=== PATIENT | male | born 1955 | race Caucasian/White ===

== ENCOUNTER 2019-06-18 11:40 | Emergency (ER) | payer MEDICARE, OTHER ==
--- OUTSIDE RECORDS SUMMARY | 2019-06-18 11:45 | XMS REPORT | Summary of Care ---
:1955 Author Organization The Address [address] [address] Care Team Providers Name Role Phone Bg Crouch Primary Care Provider Reason for Visit Reason Comments Lab Work Only done last OV 11/27/18 Thyroid Problem was confused about directions of levothyroxine, was doing 150mcg qd and then realized it was suppose to be qod (been doing that past 6-8 weeks), however he never took the 175mcg at all Hypertension f/u BP 112/70 Sleep Apnea uses CPAP nightly with no issues Dry Skin c/o dry itchy skin Rash upper arms, back of legs and groin Encounter Details Date Type Department Care Team Description 05/29/2019 Office Visit [facility] Bg Crouch MD Hypothyroidism due to acquired atrophy of thyroid (Primary Dx); Medicine [address] Rash [address] [place] [address] [place] [address] [phone] Allergies No Known Allergiesdocumented as of this encounter (statuses as of 05/30/2019) Medications Medication Sig Dispensed Refills Start Date End Date Status aspirin 81 MG Oral Chew Take 81 mg by 0 Active Tab mouth DAILY. levothyroxine Take 1 Tab by 45 Tab 3 11/28/2018 Active (SYNTHROID) 175 MCG mouth EVERY OTHER Oral Tab DAY. levothyroxine Take 1 Tab by 45 Tab 3 11/28/2018 Active (SYNTHROID) 150 MCG mouth EVERY OTHER Oral Tab DAY. simvastatin (ZOCOR) 40 TAKE 1 TABLET BY 90 Tab 3 02/11/2019 Active MG Oral TabIndications: MOUTH AT BEDTIME ASHD (arteriosclerotic heart disease) losartan (COZAAR) 25 MG TAKE 1 TABLET BY 90 Tab 3 03/20/2019 Active Oral Tab MOUTH EVERY DAY fluticasone (FLONASE) [place] 2 Sprays in 0 Active 50 MCG/ACT Nasal nose DAILY Suspension NEEDED. triamcinolone Apply to affected 80 g 5 05/29/2019 Active (KENALOG,ARISTOCORT) areas daily as 0.1 % Apply externally needed CreamIndications: Rash documented as of this encounter (statuses as of 05/30/2019) Active Problems Problem Noted Date Essential hypertension 11/28/2017 BRENDON on CPAP 05/11/2017 Bilateral carpal tunnel syndrome 05/11/2017 Ankle pain, right 03/19/2015 Sprain of ankle, unspecified site 03/19/2015 documented as of this encounter (statuses as of 05/30/2019) Social History Tobacco Use Types Packs/Day Years Used Date Former Smoker Smokeless Tobacco: Never Used Alcohol Use Drinks/Week oz/Week Comments No Sex Assigned at Date Recorded Not on file Job Start Date Occupation Industry Not on file Not on file Not on file Travel History Travel Start Travel End No recent travel history available. documented as of this encounter Last Filed Vital Signs Vital Sign Reading Time Taken Comments Blood Pressure 112/70 05/29/2019 9:40 AM EDT Pulse 60 05/29/2019 9:40 AM EDT Temperature - - Respiratory Rate - - Oxygen Saturation - - Inhaled Oxygen Concentration - - Weight 132.9 kg (293 lb) 05/29/2019 9:40 AM EDT Height 185.4 cm (6' 1") 05/29/2019 9:40 AM EDT Body Mass Index 38.66 05/29/2019 9:40 AM EDT documented in this encounter Patient Instructions Patient InstructionsBg Crouch MD - 05/29/2019 9:40 AM EDTContinue same medicines, but make sure you are taking levothyroxine 150 mg alternating with 175 mg, on a daily basis Try triamcinolone cream to the rash on the arms, legs, groin, do not use it every day for more than 2 weeks or he can damage the skin. If it is not helping we will refer you to dermatology. Return in July for a thyroid-stimulating hormone test which will tell us if you are back on track with respect to your thyroid replacement therapy. I will send you the results with a letter or email If all okay, return in 6 months for your yearly exam documented in this encounter Progress Notes Bg Crouch MD - 05/29/2019 9:40 AM EDT PATIENT: Lonnie Reynoso : 1955 DATE OF SERVICE: 05/29/2019 CHIEF COMPLAINT: Chief Complaint Patient presents with Lab Work Only done last OV 11/27/18 Thyroid Problem was confused about directions of levothyroxine, was doing 150mcg qd and then realized it was suppose to be qod (been doing that past 6-8 weeks), however he never took the 175mcg at all Hypertension f/u BP 112/70 Sleep Apnea uses CPAP nightly with no issues Dry Skin c/o dry itchy skin Rash upper arms, back of legs and groin Subjective HISTORY OF PRESENT ILLNESS: Lonnie Reynoso is a 64-y.o. male. HPI Was taking thyroid incorrectly, taking nothing every other day. Told him to take 150 mcg on one dayand 175 mcg on the next day, in an alternating manner. Blood pressure under good control Using CPAP nightly Complains of rash on his upper arms back so his legs and his groin. Unclear cause. [id number] cream not helpful. Lab work in March was otherwise unremarkable except for the thyroid stimulating hormone level. Theresults are shown below Office Visit on 11/27/2018 Component Date Value Ref Range Status WBC Count 11/27/2018 7.18 4.23 - 9.07 K/uL Final RBC Count 11/27/2018 5.39 4.30 - 5.89 M/UL Final Hemoglobin 11/27/2018 15.9 13.7 - 17.5 G/DL Final Hematocrit 11/27/2018 48.2 40.1 - 51.0 % Final MCV 11/27/2018 89.4 79.0 - 92.2 FL Final MCH 11/27/2018 29.5 25.7 - 32.2 PG Final MCHC 11/27/2018 33.0 32.3 - 36.5 g/dL Final Platelet Count 11/27/2018 213 163 - 337 K/uL Final MPV 11/27/2018 11.4 9.4 - 12.4 FL Final RDW 11/27/2018 13.6 11.6 - 14.4 % Final Neutrophil % 11/27/2018 60.4 34.0 - 67.9 % Final Lymphocyte % 11/27/2018 22.0 21.8 - 53.1 % Final Monocyte % 11/27/2018 8.5 5.3 - 12.2 % Final Eosinophil % 11/27/2018 8.2* 0.8 - 7.0 % Final Basophil % 11/27/2018 0.8 0.2 - 1.2 % Final nRBC % 11/27/2018 0.0 0.0 - 0.2 % Final Neutrophil # 11/27/2018 4.33 1.78 - 5.38 K/UL Final Lymphocyte # 11/27/2018 1.58 1.32 - 3.57 K/UL Final Monocyte # 11/27/2018 0.61 0.30 - 0.82 K/UL Final Eosinophil # 11/27/2018 0.59* 0.04 - 0.54 K/UL Final Basophil # 11/27/2018 0.06 0.01 - 0.08 K/UL Final Immature Gran % 11/27/2018 0.1 0.0 - 0.4 % Final Immature Gran # 11/27/2018 0.01 0.00 - 0.03 K/uL Final NRBC # 11/27/2018 0.00 0.00 - 0.12 K/uL Final Sodium 11/27/2018 137 134 - 145 mmol/L Final Potassium 11/27/2018 4.4 3.5 - 5.1 mmol/L Final Chloride 11/27/2018 103 98 - 107 mmol/L Final CO2 11/27/2018 27 22 - 30 mmol/L Final Calcium 11/27/2018 9.0 8.3 - 10.1 mg/dl Final Albumin 11/27/2018 4.5 3.5 - 5.0 g/dl Final BUN 11/27/2018 16 9 - 20 mg/dl Final Creatinine 11/27/2018 0.8 0.8 - 1.5 mg/dl Final Glucose 11/27/2018 89 70 - 99 mg/dl Final Total Protein 11/27/2018 7.7 6.3 - 8.2 g/dl Final Total Bilirubin 11/27/2018 1.0 0.0 - 1.1 MG/DL Final AST 11/27/2018 49 17 - 59 U/L Final ALT 11/27/2018 60 21 - 72 U/L Final Alkaline Phosphatase 11/27/2018 60 40 - 150 U/L Final eGFR 11/27/2018 >60 See Interpretation Below ml/min/1.73ml Sq Final Estimated GFR Interpretation: Above 60ml/min/1.73m2 = Normal Renal Function 30-59 ml/min/1.73m2 = Stage 3 Chronic Kidney Disease 15-29 ml/min/1.73m2 = Stage 4 Chronic Kidney Disease Less than 15 ml/min/1.73m2 = Stage 5 Chronic Kidney Disease The GFR value is calculated using the Modification of Diet in Renal Disease ( MDRD) Study Equation which can be found at: https://www.kidney.org/content/wcak-xxibb-jbwtwkbo BUN/Creatinine Ratio 11/27/2018 20 6 - 22 RATIO Final Anion Gap 11/27/2018 7 3 - 11 mmol/L Final A/G Ratio 11/27/2018 1.4 0.8 - 2.0 ratio Final Cholesterol 11/27/2018 99 <200 mg/dl Final HDL Cholesterol 11/27/2018 30* >40 mg/dl Final Triglycerides 11/27/2018 76 <150 mg/dl Final LDL Cholesterol 11/27/2018 54 <100 MG/DL Final Cholesterol / HDL Ratio 11/27/2018 3.3 RATIO Final LDL / HDL Ratio 11/27/2018 1.8 Final Non-HDL Cholesterol 11/27/2018 69 0 - 130 MG/DL Final PSA SCREEN 11/27/2018 0.68 <4.00 ng/mL Final PSA is performed on the crobos systems. Values obtained with different assay methods or kits cannot be used interchangeably. PSA levels in serum and plasma, regardless of level, should not be interpreted as absolute evidence of the presence or absence of malignant disease. Serial test results obtained with the [employer] PSA test, in patients who are clinically free of disease, should be used in conjunction with all relevant information derived from diagnostic tests, physical examination, and full medical history in accordance with appropriate patient management procedures. TSH 11/27/2018 0.08* 0.47 - 4.68 uIu/ml Final Past Medical History: Diagnosis Date Heart attack (HCC) Hypertension Hypothyroidism Sleep apnea on CPAP Thyroid disease Family History Problem Relation Age of Onset Arthritis Sister Thyroid Sister Current Outpatient Medications Medication Sig aspirin 81 MG Oral Chew Tab Take 81 mg by mouth DAILY. fluticasone (FLONASE) 50 MCG/ACT Nasal Suspension [place] 2 Sprays in nose DAILY NEEDED. levothyroxine (SYNTHROID) 150 MCG Oral Tab Take 1 Tab by mouth EVERY OTHER DAY. levothyroxine (SYNTHROID) 175 MCG Oral Tab Take 1 Tab by mouth EVERY OTHER DAY. losartan (COZAAR) 25 MG Oral Tab TAKE 1 TABLET BY MOUTH EVERY DAY simvastatin (ZOCOR) 40 MG Oral Tab TAKE 1 TABLET BY MOUTH AT BEDTIME No current facility-administered medications for this visit. No Known Allergies Social History Socioeconomic History Marital status: Spouse name: Not on file Number of children: Not on file Years of education: Not on file Highest education level: Not on file Occupational History Not on file Social Needs Financial resource strain: Not on file Food insecurity: Worry: Not on file Inability: Not on file Transportation needs: Medical: Not on file Non-medical: Not on file Tobacco Use Smoking status: Former Smoker Smokeless tobacco: Never Used Substance and Sexual Activity Alcohol use: No Drug use: Not on file Sexual activity: Not on file Lifestyle Physical activity: Days per week: Not on file Minutes per session: Not on file Stress: Not on file Relationships Social connections: Talks on phone: Not on file Gets together: Not on file Attends congregation service: Not on file Active member of club or organization: Not on file Attends meetings of clubs or organizations: Not on file Relationship status: Not on file Intimate partner violence: Fear of current or ex partner: Not on file Emotionally abused: Not on file Physically abused: Not on file Forced sexual activity: Not on file Other Topics Concern Back Care Not Asked Bike Helmet Not Asked Blood Transfusions Not Asked Caffeine Concern Not Asked Exercise Not Asked Hobby Hazards Not Asked International Travel Not Asked Service Not Asked Occupational Exposure Not Asked Seat Belt Not Asked Self-Exams Not Asked Sleep Concern Not Asked Special Diet Not Asked Stress Concern Not Asked Weight Concern Not Asked Social History Narrative Not on file Over the last 2 weeks, have you been feeling down, depressed, anxious, or hopeless?: 1 Over the past 2 weeks, have you felt little interest or pleasure in doing things ?: 0 REVIEW OF SYSTEMS: Review of Systems HENT: Negative for congestion. Gastrointestinal: Negative for abdominal pain. Skin: Positive for itching and rash. Endo/Heme/Allergies: Negative for polydipsia. please also see history of present illness otherwise noncontributory Objective PHYSICAL EXAM: VITALS: BP 112/70 | Pulse 60 | Ht 6' 1" (1.854 m) | Wt 293 lb (132.9 kg) | BMI 38.66 kg/m Body mass index is 38.66 kg/m. Physical Exam Alert, oriented, in no acute distress. Vitals as above. HEENT: unremarkable. Neck: No palpable lymphadenopathy in the submandibular, submental, anterior cervical, posterior cervical, or occipital chains, nor in the supraclavicular spaces. No JVD, thyromegaly. LUNGS: clear. HEART: Regular rate and rhythm. EXTREMITIES: no cyanosis, clubbing, or edema. Erythematous macular rash on inner upper arms ASSESSMENT / IMPRESSION: ICD-9-CM ICD-10-CM 1. Hypothyroidism due to acquired atrophy of thyroid dose levothyroxine 150/175 mcg on alternating days 244.8 E03.4 THYROID STIMULATING HORMONE 246.8 2. Rashtry triamcinolone. If not helping will refer to dermatology. Doubt it is from losartan. He is on that medicine after his prior medication, valsartan, was reported to have potential contamination. He never had rash with valsartan previously 782.1 R21 triamcinolone (KENALOG,ARISTOCORT) 0.1 % Apply externally Cream Patient Instructions Continue same medicines, but make sure you are taking levothyroxine 150 mg alternating with 175 mg, on a daily basis Try triamcinolone cream to the rash on the arms, legs, groin, do not use it every day for more than 2 weeks or he can damage the skin. If it is not helping we will refer you to dermatology. Return in July for a thyroid-stimulating hormone test which will tell us if you are back on track with respect to your thyroid replacement therapy. I will send you the results with a letter or email If all okay, return in 6 months for your yearly exam Author: Bg Crouch MD 05/29/2019 09:55 documented in this encounter Plan of Treatment Date Type Specialty Care Team Description 07/29/2019 Lab Internal Medicine 12/02/2019 Office Visit Internal Medicine Bg Crouch MD [address] [place] [address] [phone] Name Type Priority Associated Diagnoses Order Schedule THYROID STIMULATING Lab Routine Hypothyroidism due to Expected: 05/29/2019 HORMONE acquired atrophy of thyroid (Approximate), Expires: 11/25/2019 Health Maintenance Due Date Last Done Comments MEDICARE ANNUAL WELLNESS 1955 VISIT HEPATITIS C SCREENING 1993 ZOSTER IMMUNIZATION SERIES 2003 (1 of 2) AAA SCREENING/SURVEILLANCE 2018 PNEUMOCOCCAL 65+YRS (1 of 2 2018 - PCV13) INFLUENZA VACCINE (#1) 2019 DIABETES SCREENING 11/28/2019 11/27/2018, 05/29/2018, 11/28/2017, Additional history exists LIPID DISORDER SCREENING 02/12/2020 02/11/2019, 11/27/2018, 05/29/2018, Additional history exists DEPRESSION SCREENING 05/29/2020 05/29/2019 FALL RISK ASSESSMENT 05/29/2020 05/29/2019, 05/29/2019 COLONOSCOPY SCREENING 09/25/2020 09/25/2017 HPV IMMUNIZATION SERIES Aged Out No longer eligible based on patient's age to complete this topic MENINGOCOCCAL VACCINE IMM Aged Out No longer eligible based on patient's age to complete this topic documented as of this encounter Goals Goal Patient Goal Associated Recent Patient-Stated? Author Type Problems Progress Blood Pressure Blood Pressure 112/70 No Miko, < 150/90 (05/29/2019 MD Bg 9:40 AM EDT) Note: This is an individualized treatment (blood pressure) goal for Lonnie Reynoso: Displayed above (on the left) is your goal for blood pressure control. Your most recent blood pressure is also shown above, on the right. You should try to achieve blood pressures that are lower than your goal listed above (on the left). Weight loss vs. 18 mo Lifestyle 19 (05/29/2019 9:40 AM EDT) No Bg Crouch MD max (lbs) >= 10 Note: This is an individualized lifestyle goal for Lonnie Reynoso: Your body mass index (BMI) is more than 30. You should lose weight. A reasonable starting goal is to lose 10 pounds. Displayed above is how many pounds you have lost thus far towards your 10 pound weight loss goal. Take all prescribed medications as directed Self-management No Bg Crouch MD Note: This is an individualized self-management goal for Lonnie Reynoso: Please take all prescribed medications as directed. 1. Do not skip doses. If you cannot afford your medications, talk with your doctor. 2. Use a pill reminder system such as a pill box if needed. Your pharmacist can help you with this. 3. Contact your Pharmacy 5 days before your medication runs out. If you cannot take your medications for any reasons, talk with your doctor. 4. Please bring all of your medication bottles and inhalers (or a list of all your medications/inhalers) with you to every visit. Potential barriers to meeting all of your care plan goals will continue to be addressed on an ongoing basis. documented as of this encounter Results Not on filedocumented in this encounter Visit Diagnoses Diagnosis Hypothyroidism due to acquired atrophy of thyroid - Primary Rash Rash and other nonspecific skin eruption documented in this encounter Insurance Payer Benefit Plan / Subscriber ID Effective Dates Phone Address Type Group wumo MEDICARE wumo xxxxxxxxxxxx 2018-Present [employer] MEDICARE BLUE PPO [phone]) Guarantor Name Account Type Relation to Date of Phone Billing Address Patient Lonnie Reynoso Personal/Family 1955 [phone] [address] [phone] [place], [place] (Work) [id number] documented as of this encounter
[2019-06-18 12:35] VITALS: BP 131/73
--- NOTE | 2019-06-18 12:37 | UC ---
Skin Complaint HPI - HPI Summary HPI Summary: 64-year-old male who had a tick embedded in his left upper arm for less than 24 hours. He states he was out raking leaves yesterday and he thinks that's where he got it. It was not engorged. - History of Current Complaint Chief Complaint: UCGeneralIllness Time Seen by Provider: 06/18/19 12:26 Stated Complaint: TICK BITE Hx Obtained From: Patient Onset/Duration: Gradual Onset Skin Exposure Onset/Duration: Hours Ago Onset Severity: Mild Current Severity: Mild Pain Intensity: 0 Location: Other - Left upper arm. Character: Redness - Small amount of redness with a tick was embedded. Aggravating Factor(s): Nothing Alleviating Factor(s): Nothing Associated Signs & Symptoms: Positive: Negative - Allergy/Home Medications Allergies/Adverse Reactions: Allergies Allergy/AdvReac Type Severity Reaction Status Date / Time ENVIRONMENTAL Allergy PLUGGED Uncoded 06/18/19 12:25 SINUS, SNEEZE SEASONAL GRESHAM YOVANI Allergy SNEEZE, Uncoded 06/18/19 12:25 PLUGGED SINUS Home Medications: Home Medications Aspirin 81 mg CHEW TAB* [Aspirin Low Dose TAB*] 81 mg PO BEDTIME 06/18/19 [ History Confirmed 06/18/19] Fluticasone NASAL SPRAY 50MCG* [Flonase NASAL SPRAY 50MCG*] 2 spray BOTH NARES DAILY 06/18/19 [History Confirmed 06/18/19] Levothyroxine TAB* [Synthroid TAB*] 150 mcg PO EVERY OTHER DAY 06/18/19 [ History Confirmed 06/18/19] Levothyroxine TAB* [Synthroid TAB*] 175 mcg PO EVERY OTHER DAY 06/18/19 [ History Confirmed 06/18/19] Losartan TAB* [Cozaar TAB*] 25 mg PO DAILY 06/18/19 [History Confirmed 06/18/19] Simvastatin [Zocor] 40 mg PO DAILY 06/18/19 [History Confirmed 06/18/19] PMH/Surg Hx/FS Hx/Imm Hx Previously Healthy: Yes Cardiovascular History: Hypertension, Myocardial Infarction - Surgical History Surgical History: Yes Surgery Procedure, Year, and Place: cyst left hand - Family History Known Family History: Positive: Non-Contributory - Social History Occupation: Retired Lives: With Family Alcohol Use: None Substance Use Type: None Smoking Status (MU): Never Smoked Tobacco Review of Systems All Other Systems Reviewed And Are Negative: Yes Skin: Positive: Other - Patient continues to have some remaining part of the tick embedded in his left upper arm. Is Patient Immunocompromised?: No Physical Exam Triage Information Reviewed: Yes Appearance: Well-Appearing, No Pain Distress, Well-Nourished Vital Signs: Initial Vital Signs Temp 98 F 06/18/19 12:29 Pulse 44 06/18/19 12:29 Resp 18 06/18/19 12:29 BP 131/73 06/18/19 12:29 Pulse Ox 97 06/18/19 12:29 Vital Signs Reviewed: Yes Skin: Positive: Other - Patient has some residual tick in his left upper inner arm. I was able to remove it with an sterile 18-gauge needle without difficulty. The patient tolerated the procedure well. Course/Dx - Course Course Of Treatment: The patient is comfortable here. I was able to remove the rest of the tick successfully. The patient opted not to have prophylactic doxycycline given and prefers to monitor for any signs and symptoms of illness. - Diagnoses Provider Diagnosis: Tick bite Discharge ED - Sign-Out/Discharge Documenting (check all that apply): Patient Departure All imaging exams completed and their final reports reviewed: No Studies - Discharge Plan Condition: Good Disposition: HOME Patient Education Materials: Tick Bite (ED) Referrals: Bg Crouch MD [Primary Care Provider] - Additional Instructions: Follow-up with your primary care provider if you develop fever, chills, body aches or any rash on your body. - Billing Disposition and Condition Condition: GOOD Disposition: Home
== END 2019-06-18 12:55 | disposition home or self-care (01) ==
LOC: UCEAST 11:40
DX: S40.862A Insect bite (nonvenomous) of left upper arm, initial encounter (principal); I10 Essential (primary) hypertension; I25.2 Old myocardial infarction; Z91.09 Other allergy status, other than to drugs and biological substances; Z79.899 Other long term (current) drug therapy; W57.XXXA Bitten or stung by nonvenomous insect and other nonvenomous arthropods, initial encounter; Y92.9 Unspecified place or not applicable
CPT/HCPCS: 99211; G0463